=== PATIENT | female | born 1985 | race Caucasian/White ===

== ENCOUNTER 2020-12-02 12:47 | Emergency (ER) | payer BC ==
[~2020-12-02] VITALS: Ht 182.9 cm; Wt 88.5 kg
[2020-12-02] MEDS ORDERED: NORTRIPTYLINE H10 M1 PO (13:04)
[2020-12-02] MEDS ORDERED: BACLOFEN5 MG PO (13:04)
[2020-12-02 15:37] VITALS: BP 135/84
== END 2020-12-02 15:38 | disposition short-term general hospital (02) ==
LOC: ER 12:47
DX: S05.01XA Injury of conjunctiva and corneal abrasion without foreign body, right eye, initial encounter (principal); G43.909 Migraine, unspecified, not intractable, without status migrainosus; Z87.891 Personal history of nicotine dependence; Z79.899 Other long term (current) drug therapy; X58.XXXA Exposure to other specified factors, initial encounter; Y93.89 Activity, other specified; Y92.89 Other specified places as the place of occurrence of the external cause; Y99.8 Other external cause status